=== PATIENT | female | born 1990 | race Caucasian/White ===

== ENCOUNTER 2016-09-25 12:20 | Day surgery (SDC) | payer OTHER ==
[~2016-09-25] VITALS: Ht 170.2 cm; Wt 61.3 kg
[~2016-09-25 12:20] MED LIST: KEFLEX500 MG PO; MOTRIN800 MG PO; PERCOCET 5/31 TABLET PO; TORADOL10 MG PO; VIBRAMYCIN100 MG PO
[2016-09-25 12:54] LABS: EOSINOPHIL (%) 2.5 % (0-5); EOSINOPHIL COUNT 0.1 K/uL (0-0.3); HEMATOCRIT 40.8 % (36.0-46.0); INSTRUMENT ABS NEUTROPHIL CT 2.6 K/uL; LYMPHOCYTE COUNT 1.9 K/uL (1.0-2.8); MCH 29.8 PG (29.0-34.0); MCHC 33.6 G/DL (30.0-36.0); MCV 88.9 FL (83-99); MEAN PLAT.VOLUME 10.5 uM^3 (9.5-12.4); MONOCYTE (%) 5.5 % (3-12); MONOCYTE COUNT 0.3 K/uL (0-0.8); NEUTROPHIL (%) 52.3 % (45-76); NEUTROPHIL COUNT 2.6 K/uL (1.8-6.4); PLATELET COUNT 207 K/uL (156-360); RBC DIS.WIDTH-CV 11.4 % (11.8-14.6); RBC DIS.WIDTH-SD 36.7 % (39-53); RED BLOOD COUNT 4.59 M/uL (3.80-5.20); WHITE BLOOD COUNT 4.9 K/uL (4.1-10.2)
[2016-09-25 13:14] VITALS: BP 108/59
[2016-09-25] MEDS ORDERED: IBUPROFEN800 MG PO (16:25)
[2016-09-25] MEDS ORDERED: DOXYCYCLINE HY100 M3 PO (16:25)
[2016-09-25] MEDS ORDERED: TRAMADOL HCL50 MG PO (17:15)
[2016-09-25 18:26] VITALS: BP 108/54
== END 2016-09-25 18:40 | disposition home or self-care (01) ==
LOC: SDC 12:20
PROVIDERS: Obstetrics & Gynecology
PROC: 10D17ZZ Extraction of Products of Conception, Retained, Via Natural or Artificial Opening (ICD-10-PCS; principal; 2016-09-25)
DX: O02.1 Missed abortion (principal); B19.20 Unspecified viral hepatitis C without hepatic coma; G43.909 Migraine, unspecified, not intractable, without status migrainosus; F17.200 Nicotine dependence, unspecified, uncomplicated; Z88.0 Allergy status to penicillin; Z88.2 Allergy status to sulfonamides
CPT/HCPCS: 85025; 86850; 86900; 86901; 88305; J0131; J1100; J1885; J2250; J2405; J3010

== ENCOUNTER 2017-07-22 05:23 | Inpatient (IN) | payer OTHER ==
[2017-07-22] VITALS (9 sets, daily range): BP systolic 90–121; BP diastolic 56–81
[~2017-07-22 05:23] MED LIST changes: +DOXYCYCLINE HY100 M3 PO; +IBUPROFEN800 MG PO; +TRAMADOL HCL50 MG PO
[2017-07-22] MEDS ORDERED: SUBOXONE 8 MG-1 EAC2 SL ×2 (06:02→06:04)
[2017-07-22] MEDS ORDERED: FLINTSTONES M100 MCG PO (06:05)
[2017-07-22 08:22] LABS: BASOPHIL (%) 0.1 % (0-1); EOSINOPHIL (%) 0.4 % (0-5); EOSINOPHIL COUNT 0.1 K/uL (0-0.3); HEMATOCRIT 33.9 % (36.0-46.0); HEMOGLOBIN 11.7 G/DL (11.9-15.5); IMMATURE GRANULOCYTE (%) 0.6 % (0.0-0.7); LYMPHOCYTE (%) 13.9 % (15-42); MCH 30.6 PG (29.0-34.0); MCHC 34.5 G/DL (30.0-36.0); MCV 88.7 FL (83-99); MONOCYTE COUNT 0.7 K/uL (0-0.8); NEUTROPHIL COUNT 11.4 K/uL (1.8-6.4); PLATELET COUNT 144 K/uL (156-360); RBC DIS.WIDTH-CV 12.5 % (11.8-14.6); RBC DIS.WIDTH-SD 40.4 % (39-53); RED BLOOD COUNT 3.82 M/uL (3.80-5.20); WHITE BLOOD COUNT 14.2 K/uL (4.1-10.2)
[2017-07-22 08:47] LABS: ALBUMIN 3.5 G/DL (3.2-4.8); ALKALINE PHOSPHATASE 112 IU/L (3-129); ALT (GPT) 10 IU/L (3-49); AST (GOT) 12 IU/L (2-34); CHLORIDE 106 MEQ/L (99-109); CREATININE 0.5 MG/DL (0.6-1.3); GFR ESTIMATE (CALCULATED) > 59 mL/min/; GLUCOSE 86 mg/dL (70-99); POTASSIUM 3.7 MEQ/L (3.7-5.4); SODIUM 136 MEQ/L (136-147); TOTAL BILIRUBIN 0.4 MG/DL (0.0-1.0); TOTAL PROTEIN 6.7 G/DL (6.4-8.3); UREA NITROGEN (BUN) 7 mg/dL (9-23)
[2017-07-22 10:12] LABS: AMPHETAMINE NEGATIVE (500 ng/mL); BARBITURATES NEGATIVE (200 ng/mL); BENZODIAZEPINES NEGATIVE (150 ng/mL); BUPRENORPHINE PRESUMPTIVE POSITIVE (10 ng/mL); COCAINE NEGATIVE (150 ng/mL); METHADONE NEGATIVE (200 ng/mL); METHAMPHETAMINE NEGATIVE (500 ng/mL); OPIATES (MORPHINE) NEGATIVE (100 ng/mL); OXYCODONE NEGATIVE (100 ng/mL); PHENCYCLIDINE NEGATIVE (25 ng/mL); PROPOXYPHENE NEGATIVE (300 ng/mL); THC CANNABINOIDS NEGATIVE (50 ng/mL); TRICYCLIC ANTIDEPRESSANTS NEGATIVE (300 ng/mL)
[2017-07-22] MEDS ORDERED: IBUPROFEN800 MG PO (13:25)
[2017-07-23 07:27] VITALS: BP 92/51
[2017-07-23 14:52] VITALS: BP 105/64
[2017-07-24 07:28] VITALS: BP 110/64
[2017-07-24 16:08] VITALS: BP 125/80
== END 2017-07-24 21:10 | disposition home or self-care (01) | DRG 774 ==
LOC: LDRP-OP 05:23 → 2WEST 05:24
PROVIDERS: Nurse Practitioner
DX: O32.6XX0 Maternal care for compound presentation, not applicable or unspecified (principal); F11.90 Opioid use, unspecified, uncomplicated; O99.324 Drug use complicating childbirth; O99.824 Streptococcus B carrier state complicating childbirth; O99.334 Smoking (tobacco) complicating childbirth; F17.200 Nicotine dependence, unspecified, uncomplicated; B19.20 Unspecified viral hepatitis C without hepatic coma; O98.42 Viral hepatitis complicating childbirth; Z88.2 Allergy status to sulfonamides; Z3A.39 39 weeks gestation of pregnancy; Z37.0 Single live birth
CPT/HCPCS: 80053; 80074; 80306 90; 85025; 86705; 86803; 87340; 87389; C1755; J0571; J3370; J7120